=== PATIENT | male | born 1985 | race Caucasian/White ===

== ENCOUNTER 2016-08-27 16:59 | Emergency (ER) | payer OTHER ==
[~2016-08-27] VITALS: Wt 90.0 kg
[2016-08-27 18:16] LABS: ADD UMIC NO; URINE BILIRUBIN (Dip) NEGATIVE (NEGATIVE); URINE BLOOD (Dip) NEGATIVE (NEGATIVE); URINE COLOR LT. YELLOW (YELLOW); URINE GLUCOSE (Dip) NEGATIVE (NEGATIVE); URINE KETONES (Dip) NEGATIVE (NEGATIVE); URINE LEUKOCYTE ESTERASE (Dip) NEGATIVE (NEGATIVE); URINE NITRITE (Dip) NEGATIVE (NEGATIVE); URINE TOTAL PROTEIN (Dip) NEGATIVE (NEGATIVE); URINE UROBILINOGEN (Dip) 0.2 E.U./dL (0.1-1.0)
--- NOTE | 2016-08-27 18:16 | RADRPT ---
PROCEDURE: Scrotal ultrasound CLINICAL INDICATION: Right testicular pain TECHNIQUE: Multiple gaspar scale, color Doppler, and spectral Doppler images of the scrotum were obt ained. Images were reviewed on a high-resolution PACS workstation. COMPARISON: None FINDINGS: The right testes measures 5 x 2.5 x 4.1 cm and the left testes measures 5.7 x 2.4 x 3.4 cm. The test es are normal in size and echogenicity with normal color flow. The right epididymis measures 11.7 x 7.2 mm and the left epididymis measures 11.6 x 9.1 mm. The epididymis bilaterally are normal in si ze and echogenicity. No hydrocele or varicocele is identified. IMPRESSION: Unremarkable scrotal ultrasound. RPTAT: HPNM Physician Chaparro Date Time Electronically viewed and signed by Physician Chaparro on 08/27/2016 18:16 /
--- NOTE | 2016-08-27 18:24 | ERD ---
ER Documentation Chief Complaint Date/Time DATE: 08/27/16 TIME: 18:21 Chief Complaint RIGHT TESTICULAR PAIN SINCE AM 2/10 HPI Patient is a 31-year-old male who has right testicular pain. He said he has had this pain on and off for over one year. He is in a monogamous relationship that he has been in for over 3 years. He denies any dysuria, hematuria, or increased urinary frequency. Denies any abdominal pain. Denies any abnormal bleeding or discharge. At this time he denies any pain but states he had pain earlier this morning that was sharp and he felt like his testicle was raised. No fever. No nausea or vomiting. ROS All systems reviewed and are negative except as per history of present illness. Allergies Allergies: Coded Allergies: No Known Allergy (Unverified , 08/27/16) PMhx/Soc Medical and Surgical Hx: pt denies Medical Hx, pt denies Surgical Hx Hx Alcohol Use: No Hx Substance Use: No Hx Tobacco Use: Yes Smoking Status: Current every day smoker FmHx Family History: No diabetes Physical Exam Vitals Vital Signs Date Time Temp Pulse Resp B/P Pulse Ox O2 Delivery O2 Flow Rate FiO2 08/27/16 17:05 97.7 97 18 141/87 97 Physical Exam General: well developed, well nourished, alert, nontoxic, no distress Head: normocephalic, atraumatic Neck: Supple, nontender, no lymphadenopathy, no midline tenderness Respiratory: Clear to auscaultation bilaterally, speaks in full sentences, no use of accesory muscles or labored breathing, no rales, ronchi, or wheezing Cardiovascular: RRR, No murmurs GI: soft, non tender, non distended, negative murphys sign, negative mcburneys point tenderness, no cva tenderness bilaterally, no rebound or guarding gu:: Bilateral testicles nontender, no swelling, no inguinal lymphadenopathy Results 24 hrs Laboratory Tests Test 08/27/16 17:50 Urine Color LT. YELLOW Urine Clarity CLEAR Urine pH 8.0 Urine Specific [place] 1.010 Urine Ketones NEGATIVE Urine Nitrite NEGATIVE Urine Bilirubin NEGATIVE Urine Urobilinogen 0.2 E.U./dL Urine Leukocyte Esterase NEGATIVE Urine Hemoglobin NEGATIVE Urine Glucose NEGATIVE% Urine Total Protein NEGATIVE Procedures/MDM Patient has right testicular pain. At this time he does not have pain but had sharp pain earlier this morning. His urine was negative for infection and ultrasound was negative. No evidence of torsion, varicocele, hydrocele, epididymitis or any other abnormality. Patient was given copy of reports we can follow with primary care. Recommended this patient follow up with her primary care doctor within 48 hours or return to the emergency room for any worsening of symptoms. However this time I do believe there is suitable for outpatient management. I answered all their questions and they agreed with the plan and were discharged home. Departure Diagnosis: Primary Impression: Pain in testicle Condition: Stable Patient Instructions: Testicular Pain, Unclear Cause Additional Instructions: Call your primary care doctor TOMORROW for an appointment during the next 1-2 days.See the doctor sooner or return here if your condition worsens before your appointment time. LUZ SHEPARD PA-C Aug 27, 2016 18:24
== END 2016-08-27 18:49 | disposition home or self-care (01) ==
LOC: FTE 16:59
DX: N50.811 Right testicular pain (principal); F17.210 Nicotine dependence, cigarettes, uncomplicated
CPT/HCPCS: 76870; 81003; Z7502